=== PATIENT | male | born 1980 | race Caucasian/White ===

== ENCOUNTER 2024-09-11 19:49 | Emergency (ER) | payer SELFPAY ==
[2024-09-11 20:02] VITALS: BP 139/89; PULSE 99; RESP 16; TEMP 98.1; BMI 19.6
[2024-09-11] MEDS ORDERED: FAMOTIDINE 20 MG TABLET ONE (20:31)
[2024-09-11] MEDS: FAMOTIDINE 20 MG TABLET PO ONE (20:32)
[2024-09-11 23:20] LABS: HIV INTERPRETATION NEGATIVE (NEGATIVE)
== END 2024-09-11 21:15 | disposition home or self-care (01) ==
LOC: FER 19:49
DX: K29.00 Acute gastritis without bleeding (principal); K58.0 Irritable bowel syndrome with diarrhea
CPT/HCPCS: 36415; 86803; 87389; 87522; 99283-25